=== PATIENT | male | born 1995 | race American Indian/Alaskan Native ===

== ENCOUNTER 2021-12-25 09:13 | Inpatient (IN) | payer OTHER ==
--- NOTE | 2021-12-25 10:14 | XRay Report ---
CHEST 2 VIEWS INDICATION / CLINICAL INFORMATION: SOB. COMPARISON: None available. FINDINGS: SUPPORT DEVICES: None. HEART / MEDIASTINUM: No significant abnormality. LUNGS / PLEURA: No significant pulmonary or pleural abnormality. No pneumothorax. ADDITIONAL FINDINGS: No significant additional findings. IMPRESSION: 1. No acute findings. Signer Name: Brandyn Sheets Jr, MD Signed: 12/25/2021 10:09 AM Workstation Name: [id number]
[2021-12-25 10:20] LABS: Mean Corpuscular HGB Conc 31 % (32-34); Mean Corpuscular Volume 95 fl (84-94); Platelet Count 318 K/mm3 (140-440); Red Blood Count 4.72 M/mm3 (3.65-5.03); Red Cell Distribution Width 14.1 % (13.2-15.2)
[2021-12-25 10:21] LABS: Hematocrit 44.6 % (35.5-45.6); Hemoglobin 13.7 gm/dl (11.8-15.2)
[2021-12-25 10:38] LABS: Alanine Aminotransferase 22 units/L (7-56); BUN/Creatinine Ratio 12; Blood Urea Nitrogen 14 mg/dL (9-20); Calcium 8.7 mg/dL (8.4-10.2); Hemolysis Index 5
[2021-12-25] MEDS ORDERED: SODIUM CHLORIDE 0.9% 1000 ML 1,000 ML IV ONE ×3 (10:39→11:10)
[2021-12-25] MEDS ORDERED: MORPHINE 4 MG/1 ML INJ IV ONE (10:39)
[2021-12-25] MEDS ORDERED: ONDANSETRON 4 MG/2 ML INJ IV ONE (10:39)
[2021-12-25] MEDS ORDERED: DEXTROSE 50% IN WATER (25GM) 50 ML SYRINGE IV PRN (11:10)
[2021-12-25 11:17] LABS: Mucus,Urine FEW /HPF
[2021-12-25 11:22] LABS: Color,Urine Straw (Yellow)
[2021-12-25 11:23] LABS: Bilirubin,Urine Negative (Negative); Blood,Urine Trace (Negative); Urobilinogen,Urine < 2.0 mg/dL (<2.0)
[2021-12-25 11:29] LABS: Band Neutrophils # (Manual) 1.1 K/mm3; Basophils % (Manual) 0 % (0.0-1.8); Eosinophils % (Manual) 0 % (0.0-4.3); Total Cells Counted 100
[2021-12-25 11:30] LABS: Platelet Estimate Consistent w Auto; RBC Morphology Normal
[2021-12-25] MEDS ORDERED: SODIUM CHLORIDE 0.9% 1000 ML IV SOLN IV ONE (12:04)
[2021-12-25] MEDS ORDERED: AZITHROMYCIN/NS 500 MG/250 ML 500 MG/250 ML BAG IV ONE (12:04)
[2021-12-25] MEDS ORDERED: cefTRIAXone/NS 2 GM/100 ML 2 GM/100 ML BAG IV ONE (12:04)
--- NOTE | 2021-12-25 12:18 | Cat Scan Report ---
CTA CHEST WITH CONTRAST INDICATION / CLINICAL INFORMATION: sob, cp, tachycardia, elevated d dimer, r/o PE. TECHNIQUE: Axial CT images were obtained through the chest after injection of 80 cc Omnipaque 350 IV contrast. 3 plane MIP and/or 3D reconstructions were produced. All CT scans at this location are perf ormed using CT dose reduction for ALARA by means of automated exposure control. There is mild image d egradation secondary to motion artifact. COMPARISON: None available. FINDINGS: PULMONARY ARTERIES: No pulmonary emboli. THORACIC AORTA: No significant abnormality. HEART: No significant abnormality. CORONARY ARTERY CALCIFICATION: None. MEDIASTINUM / DIANA: No significant abnormality. PLEURA: No pleural effusion. No pneumothorax. LUNGS: No acute air space or interstitial disease. ADDITIONAL FINDINGS: None. UPPER ABDOMEN: No acute findings. SKELETAL STRUCTURES: No significant osseous abnormality. IMPRESSION: 1. No CT evidence for pulmonary embolism. 2. No acute findings. Signer Name: Gustavo Liu DO Signed: 12/25/2021 12:13 PM Workstation Name: [id number]
--- NOTE | 2021-12-25 12:29 | History and Physical Report ---
History of Present Illness Chief complaint: I feel sick History of present illness: 26 YO Male with DM presents to ED for evaluation. Patient reports "I feel sick". Patient is lethargic with diminished cognition at time of my evaluation and provides minimal history. Patient reports feeling sick over the past few da ys. Patient transported to [facility] via private vehicle for further care and evaluation of the aforementioned symptoms. The patient was seen and evaluated in the emergency department. All lab and imaging studies reviewed. Patient found to have DKA, sepsis, hyponatremia, metabolic acidosis, toxic metabolic encephalopathy. Patient initiated on DKA protocol, sepsis protocol, as well as coronavirus protocol admitted to ICU. No reports of fever, chills, chest pain, palpitation, productive cough, skin rash, recent contact, known exposure to COVID-19. Prior admission on 05/30/2021 reviewed. No medication listed at time of admission for reconciliation. Patient has diminished cognition at the time my evaluation but has a positive gag reflex and is able to protect his airway without difficulty. Advanced care planning conducted in ED. Past History Past Medical History: diabetes Past Surgical History: No surgical history (Reviewed 6.), Other (Reviewed) Social history: single. denies: smoking, alcohol abuse, prescription drug abuse Family history: diabetes, hypertension Medications and Allergies Allergies Allergy/AdvReac Type Severity Reaction Status Date / Time levofloxacin [From Levaquin] Allergy Rash Verified 05/30/21 04:48 Home Medications Medication Instructions Recorded Confirmed Last Taken Type NovoLOG 100 UNITS/ML VIAL See Protocol SQ AC 05/31/21 05/31/21 1 Day Ago History ~05/30/21 Active Meds: Active Medications Dextrose (Dextrose 50% In Water (25gm) 50 Ml Syringe) 0 ml IV Q30MIN PRN; Protocol PRN Reason: Hypoglycemia Insulin Human Regular 100 (units/ Sodium Chloride) 100 mls @ 1 mls/hr IV TITR ANIA; Protocol Ceftriaxone Sodium (Rocephin/Ns 2 Gm/100 Ml) 2 gm in 100 mls @ 200 mls/hr IV ONCE ONE; Protocol Stop: 12/25/21 12:33 Azithromycin (Zithromax/Ns) 500 mg in 250 mls @ 250 mls/hr IV ONCE ONE; Protocol Stop: 12/25/21 13:03 Review of Systems ROS unobtainable: due to mental status Exam - Constitutional Vitals: Temp Pulse Resp BP Pulse Ox 98.7 F 126 H 29 H 128/62 100 12/25/21 09:16 12/25/21 11:21 12/25/21 11:21 12/25/21 09:16 12/25/21 11:21 General appearance: Present: mild distress - EENT Eyes: Present: PERRL ENT: hearing intact, clear oral mucosa - Neck Neck: Present: supple, normal ROM - Respiratory Respiratory effort: labored Respiratory: bilateral: CTA - Cardiovascular Heart Sounds: Present: S1 & S2. Absent: rub, click - Extremities Extremities: pulses symmetrical, No edema Peripheral Pulses: abnormal (Capillary refill greater than 3.5 seconds) - Abdominal General gastrointestinal: Present: soft, non-tender, non-distended, normal bowel sounds Male genitourinary: Present: normal - Integumentary Integumentary: Present: warm, dry, clammy, decreased turgor - Musculoskeletal Musculoskeletal: generalized weakness - Psychiatric Psychiatric: no appropriate mood/affect, no intact judgment & insight, no memory intact - Neurologic Neurologic: no CNII-XII intact, no focal deficits, moves all extremities, no gait normal HEART Score - HEART Score Troponin: Troponin T < 0.010 ng/mL (0.00-0.029) 12/25/21 09:52 Results - Labs CBC & Chem 7: 12/25/21 09:52 12/25/21 12:38 Labs: Abnormal lab results 12/25/21 12/25/21 12/25/21 Range/Units 09:52 09:52 09:52 WBC 36.9 H (4.5-11.0) K/mm3 MCV 95 H (84-94) fl MCHC 31 L (32-34) % Seg Neuts % (Manual) 87.0 H (40.0-70.0) % Lymphocytes % (Manual) 3.0 L (13.4-35.0) % Seg Neutrophils # Man 32.1 H (1.8-7.7) K/mm3 Lymphocytes # (Manual) 1.1 L (1.2-5.4) K/mm3 Monocytes # (Manual) 2.2 H (0.0-0.8) K/mm3 D-Dimer 397.42 H (0-234) ng/mlDDU Sodium 130 L (137-145) mmol/L Potassium 5.3 H (3.6-5.0) mmol/L Chloride 92.3 L (98-107) mmol/L Carbon Dioxide 4 L* (22-30) mmol/L Glucose 584 H* (75-100) mg/dL Assessment and Plan - Patient Problems (1) Sepsis Current Visit: Yes Status: Acute Plan to address problem: Sepsis protocol: CBC, CMP, chest x-ray, urinalysis, IV antibiotic therapy, IV fluid resuscitation therapy, serial lactic acid level, blood culture, maintain mean arterial pressure greater than or equal to 65, monitor fluid balance. The high probability of a clinically significant, sudden or life threatening deterioration of the [endocrine, pulmonary, renal, neuro] system(s) required my full and direct attention, intervention and personal management. The aggregate critical care time was [95] minutes. This time is in addition to time spent performing reported procedures but includes the following: [x] Data Review and interpretation [x] Patient assessment and monitoring of vital signs [x] Documentation [x] Medication orders and management (2) DKA (diabetic ketoacidosis) Current Visit: Yes Status: Acute Qualifiers: Diabetes mellitus type: type 1 Plan to address problem: DKA protocol: Insulin drip, IV fluid resuscitation therapy, serial BMP, monitor anion gap, IV bicarbonate therapy, potassium repletion as per protocol. (3) Metabolic acidosis Current Visit: Yes Status: Acute Plan to address problem: IV fluid resuscitation therapy, bicarbonate therapy, repeat BMP. (4) Toxic metabolic encephalopathy Current Visit: Yes Status: Acute Plan to address problem: Treat sepsis, IV fluid resuscitation therapy, supportive care. (5) Hyponatremia Current Visit: Yes Status: Acute Plan to address problem: BMP, IV fluid resuscitation therapy, monitor urine output every shift, monitor fluid Balance, repeat BMP in AM. (6) Suspected 2019 novel coronavirus infection Current Visit: Yes Status: Acute Plan to address problem: Coronavirus protocol, vitamin C therapy, vitamin D therapy, zinc therapy, IV antibiotic therapy, IV steroid therapy, supportive care. Supplemental oxygen, pulse oximetry. (7) DVT prophylaxis Current Visit: Yes Status: Acute Plan to address problem: SCD to bilateral lower extremities while in bed, continue prophylactic anticoagulation. (8) Advance care planning Current Visit: Yes Status: Acute Plan to address problem: Disease education done, care plan discussed, diagnosis discussed, prognosis discussed, patient is full code, +30 minutes. (9) Preventative health care Current Visit: Yes Status: Acute Plan to address problem: Patient counseled regarding compliance with consistent carbohydrate diet, insulin therapy. Patient counseled regarding safe driving. +30 minutes.
[2021-12-25] MEDS ORDERED: oxyCODONE /ACETAMINOPHEN 5-325MG TAB PO PRN (12:32)
[2021-12-25] MEDS ORDERED: MORPHINE 4 MG/1 ML INJ IV PRN (12:32)
[2021-12-25] MEDS ORDERED: HYDROmorphone 0.5 MG/0.5 ML INJ IV PRN (12:32)
[2021-12-25] MEDS ORDERED: ACETAMINOPHEN 325 MG TAB PO PRN ×2 (12:32)
[2021-12-25] MEDS ORDERED: ALBUTEROL 2.5 MG/3 ML NEBU IH PRN (12:32)
[2021-12-25] MEDS ORDERED: VANCOMYCIN 1,750 MG in SODIUM CHLORIDE 0.9% 500 ML 500 ML IV ONE (12:32)
[2021-12-25] MEDS ORDERED: INSULIN REGULAR, HUMAN 100 UNITS/1 ML IV ONE (12:35)
[2021-12-25] MEDS: INSULIN REGULAR, HUMAN 100 UNITS in SODIUM CHLORIDE 0.9% 99 ML IV SCH (12:42)
--- NOTE | 2021-12-25 12:51 | Emergency Department Report ---
ED General Adult HPI - General Chief complaint: Upper Respiratory Infection Stated complaint: GALEAS PAIN/NAUSEA Time Seen by Provider: 12/25/21 09:48 Source: patient Mode of arrival: Ambulatory Limitations: No Limitations - History of Present Illness Initial comments: Patient is a 26-year-old male with past medical history notable for type 1 diabetes who presents emergency department with complaint of 3 days of body aches, chills, shortness of breath. Patient states he has not had fevers. Patient reports that he is vaccinated against COVID-19. He denies any sick contacts. He reports that he has been taking his medication as prescribed but has had some significant nausea. Severity scale (0 -10): 10 - Related Data Home Medications Medication Instructions Recorded Confirmed Last Taken NovoLOG 100 UNITS/ML VIAL See Protocol SQ AC 05/31/21 05/31/21 1 Day Ago ~05/30/21 Allergies Allergy/AdvReac Type Severity Reaction Status Date / Time levofloxacin [From Levaquin] Allergy Rash Verified 05/30/21 04:48 ED Review of Systems ROS: Stated complaint: GALEAS PAIN/NAUSEA Other details as noted in HPI Constitutional: chills. denies: fever Eyes: denies: eye pain, eye discharge, vision change ENT: denies: ear pain, throat pain Respiratory: cough, shortness of breath. denies: wheezing Cardiovascular: denies: chest pain, palpitations Endocrine: no symptoms reported Gastrointestinal: nausea. denies: abdominal pain, diarrhea Genitourinary: denies: urgency, dysuria Musculoskeletal: denies: back pain, joint swelling, arthralgia Skin: denies: rash, lesions Neurological: denies: headache, weakness, paresthesias Psychiatric: denies: anxiety, depression Hematological/Lymphatic: denies: easy bleeding, easy bruising ED Past Medical Hx - Past Medical History Hx Diabetes: Yes (Type1, DKA (multiple admissions)) Additional medical history: Celiac disease - Surgical History Past Surgical History?: No - Social History Smoking Status: Current Every Day Smoker - Medications Home Medications: Home Medications Medication Instructions Recorded Confirmed Last Taken Type NovoLOG 100 UNITS/ML VIAL See Protocol SQ AC 05/31/21 05/31/21 1 Day Ago History ~05/30/21 ED Physical Exam - General Limitations: No Limitations General appearance: alert, in distress - Head Head exam: Present: atraumatic, normocephalic - Eye Eye exam: Present: normal appearance - ENT ENT exam: Present: mucous membranes dry - Neck Neck exam: Present: other (There is a lesion to the right aspect of the neck. It is nontender) - Respiratory Respiratory exam: Present: normal lung sounds bilaterally, other (Patient is markedly tachypneic) - Cardiovascular Cardiovascular Exam: Present: tachycardia. Absent: systolic murmur, diastolic murmur, rubs, gallop - GI/Abdominal GI/Abdominal exam: Present: soft. Absent: distended, tenderness - Rectal Rectal exam: Present: deferred - Extremities Exam Extremities exam: Present: normal inspection - Back Exam Back exam: Present: normal inspection - Neurological Exam Neurological exam: Present: alert, oriented X3 - Psychiatric Psychiatric exam: Present: normal affect, normal mood - Skin Skin exam: Present: warm, dry, intact, normal color. Absent: rash ED Course Vital Signs 12/25/21 12/25/21 12/25/21 09:16 10:11 11:21 Temperature 98.7 F Pulse Rate 117 H 126 H Respiratory 24 20 29 H Rate Blood Pressure 128/62 Blood Pressure [Right] O2 Sat by Pulse 100 100 100 Oximetry 12/25/21 12:50 Temperature 97.2 F L Pulse Rate 119 H Respiratory 34 H Rate Blood Pressure Blood Pressure 128/90 [Right] O2 Sat by Pulse 100 Oximetry - Reevaluation(s) Reevaluation #1: 12/25/21 12:56 Patient still tachypneic. Patient's insulin drip and IV bolus of insulin has been ordered. Given that he is hyperkalemic I have not ordered any additional potassium like fluids. - Consultations Consultation #1: 12/25/21 12:54 I have spoken to the door to door selling distributor, Dr. Lobato. She will be consulting on the patient and patient is to be admitted to the hospitalist to the critical care unit. ED Medical Decision Making - Lab Data Result diagrams: 12/25/21 09:52 12/25/21 09:52 - Radiology Data Radiology results: report reviewed, image reviewed - Medical Decision Making This is a 26-year-old male here with complaints of chills, nausea, upper respiratory symptoms. Differential includes pulmonary embolism, pneumonia, viral infection, covid 19, patient also is a diabetic so the differential includes DKA, HHS, Hyperglycemia. Labs in triage notable for white count of 36, CO2 of 4, elevated blood sugar above 500. Given this I do think patient is in DKA and he has been ordered fluids, insulin bolus and insulin drip. Plan for admission to the hospitalist with consultation with ICU. Broad-spectrum antibiotics have also been ordered. Critical Care Time: Yes Critical care time in (mins) excluding proc time.: 42 Critical care attestation.: If time is entered above; I have spent that time in minutes in the direct care of this critically ill patient, excluding procedure time. ED Disposition Clinical Impression: DKA (diabetic ketoacidosis) Disposition: ADMITTED INPATIENT Is pt being admited?: Yes Does the pt Need Aspirin: No Condition: Critical Instructions: Diabetic Ketoacidosis (ED) Referrals: PRIMARY CARE, [Primary Care Provider] - 3-5 Days
[2021-12-25] MEDS ORDERED: VANCOMYCIN PHARMACY TO DOSE IV SCH (13:00)
[2021-12-25 13:23] LABS: BUN/Creatinine Ratio 13; Blood Urea Nitrogen 14 mg/dL (9-20); Calcium 8.9 mg/dL (8.4-10.2); Hemolysis Index 11
[2021-12-25] MEDS ORDERED: SODIUM BICARB 8.4% 50 MEQ/50 ML SYRINGE IV SCH ×2 (14:30)
[2021-12-25 14:44] LABS: C-Reactive Protein 0.4 mg/dL (0.00-1.30)
[2021-12-25] MEDS ORDERED: INSULIN REGULAR, HUMAN 100 UNITS in SODIUM CHLORIDE 0.9% 99 ML IV SCH (15:00)
--- NOTE | 2021-12-25 15:56 | Consultation ---
History of Present Illness Consult date: 12/25/21 Medications and Allergies Allergies Allergy/AdvReac Type Severity Reaction Status Date / Time levofloxacin [From Levaquin] Allergy Rash Verified 05/30/21 04:48 Home Medications Medication Instructions Recorded Confirmed Last Taken Type NovoLOG 100 UNITS/ML VIAL See Protocol SQ AC 05/31/21 05/31/21 1 Day Ago History ~05/30/21 Active Meds: Active Medications Acetaminophen (Acetaminophen 325 Mg Tab) 650 mg PO Q6H PRN PRN Reason: Pain MILD(1-3)/Fever >100.5/BARRETT Albuterol (Albuterol 2.5 Mg/3 Ml Nebu) 2.5 mg IH Q3HRT PRN PRN Reason: Shortness Of Breath Dextrose (Dextrose 50% In Water (25gm) 50 Ml Syringe) 0 ml IV Q30MIN PRN; Protocol PRN Reason: Hypoglycemia Hydromorphone HCl (Hydromorphone 0.5 Mg/0.5 Ml Inj) 0.25 mg IV Q4H PRN PRN Reason: Pain, Moderate (4-6) Insulin Human Regular 100 (units/ Sodium Chloride) 100 mls @ 1 mls/hr IV TITR ANIA; Protocol Last Admin: 12/25/21 12:42 Dose: 8 units/hr, 8 mls/hr Azithromycin (Zithromax/Ns) 500 mg in 250 mls @ 250 mls/hr IV Q24H ANIA; Protocol Ceftriaxone Sodium (Rocephin/Ns 2 Gm/100 Ml) 2 gm in 100 mls @ 200 mls/hr IV Q24H ANIA; Protocol Morphine Sulfate (Morphine 4 Mg/1 Ml Inj) 2 mg IV Q14H PRN PRN Reason: Pain , Severe (7-10) Oxycodone/Acetaminophen (Oxycodone /Acetaminophen 5-325mg Tab) 1 tab PO Q6H PRN PRN Reason: Pain, Moderate (4-6) Sodium Bicarbonate (Sodium Bicarb 8.4% 50 Meq/50 Ml Syringe) 50 meq IV ONCE@1430 ANIA Stop: 12/25/21 18:30 Sodium Bicarbonate (Sodium Bicarb 8.4% 50 Meq/50 Ml Syringe) 50 meq IV ONCE@1430 ANIA Stop: 12/25/21 18:30 Sodium Chloride (Sodium Chloride 0.9% 10 Ml Flush Syringe) 10 ml IV BID ANIA Sodium Chloride (Sodium Chloride 0.9% 10 Ml Flush Syringe) 10 ml IV PRN PRN PRN Reason: LINE FLUSH Physical Examination Vital signs: Vital Signs Temp Pulse Resp BP Pulse Ox 98.7 F 117 H 24 128/62 100 12/25/21 09:16 12/25/21 09:16 12/25/21 09:16 12/25/21 09:16 12/25/21 09:16 Results - Laboratory Findings CBC and BMP: 12/25/21 09:52 12/25/21 12:38 PT/INR, D-dimer D-Dimer 397.42 ng/mlDDU (0-234) H 12/25/21 09:52 Abnormal lab findings: Abnormal Labs 12/25/21 12/25/21 12/25/21 09:52 09:52 09:52 WBC 36.9 H MCV 95 H MCHC 31 L Seg Neuts % (Manual) 87.0 H Lymphocytes % (Manual) 3.0 L Seg Neutrophils # Man 32.1 H Lymphocytes # (Manual) 1.1 L Monocytes # (Manual) 2.2 H D-Dimer 397.42 H VBG pH Sodium 130 L Potassium 5.3 H Chloride 92.3 L Carbon Dioxide 4 L* Glucose 584 H* POC Glucose Phosphorus Lactate Dehydrogenase 12/25/21 12/25/21 12/25/21 12:27 12:38 12:38 WBC MCV MCHC Seg Neuts % (Manual) Lymphocytes % (Manual) Seg Neutrophils # Man Lymphocytes # (Manual) Monocytes # (Manual) D-Dimer VBG pH 7.040 L* Sodium 130 L Potassium 5.4 H Chloride 92.6 L Carbon Dioxide 3 L* Glucose 581 H* POC Glucose 586 H Phosphorus 5.80 H Lactate Dehydrogenase 12/25/21 12:40 WBC MCV MCHC Seg Neuts % (Manual) Lymphocytes % (Manual) Seg Neutrophils # Man Lymphocytes # (Manual) Monocytes # (Manual) D-Dimer VBG pH Sodium Potassium Chloride Carbon Dioxide Glucose POC Glucose Phosphorus Lactate Dehydrogenase 224 H
--- NOTE | 2021-12-25 17:28 | Procedure Note ---
Date of procedure: 12/25/21 Pre-op diagnosis: DKA Post-op diagnosis: same Procedure: Right femoral vein triple-lumen catheter placed under ultrasound guidance The patient was prepped and draped in the usual sterile fashion. A timeout was taken with the patient's nurse at bedside to verify the correct patient, the correct procedure, and the correct operative site. Local anesthesia obtained with 1% lidocaine. The Seldinger technique was utilized under ultrasound to localize the right femoral vein without difficulty. A seeker needle was utilized to access the right femoral vein under ultrasound guidance. A guidewire was advanced via the seeker needle into the right femoral vein and the seeker needle removed over the guidewire. A scalpel was used to incise the skin. A dilator was then passed over the guidewire into the right femoral vein and subsequently removed. A preflush triple-lumen catheter was then advanced to the right femoral vein and the guidewire removed. A Biopatch was placed at the insertion site. 3-0 silk suture was utilized to suture the triple-lumen catheter in place. All 3 ports flush and drawl with ease. Estimated blood loss minimal. Complications none. Specimens none. Anesthesia: local Surgeon: NEVAEH NIELSEN Estimated blood loss: minimal Pathology: none Condition: critical Disposition: ICU
[2021-12-25] MEDS ORDERED: SODIUM CHLORIDE 0.9% 1000 ML 2,000 ML IV ONE (18:27)
[2021-12-25] MEDS: D5W/0.45% NACL 1,000 ML IV SCH (18:59)
[2021-12-25 23:40] LABS: BUN/Creatinine Ratio 11; Blood Urea Nitrogen 11 mg/dL (9-20); Calcium 7.9 mg/dL (8.4-10.2); Hemolysis Index 5
[2021-12-26] MEDS: INSULIN REGULAR, HUMAN 100 UNITS in SODIUM CHLORIDE 0.9% 99 ML IV SCH (01:03)
[2021-12-26] MEDS: D5W/0.45% NACL 1,000 ML IV SCH (01:05)
[2021-12-26 04:45] LABS: Hematocrit 36.3 % (35.5-45.6); Hemoglobin 11.9 gm/dl (11.8-15.2); Mean Corpuscular HGB Conc 33 % (32-34); Mean Corpuscular Volume 90 fl (84-94); Platelet Count 270 K/mm3 (140-440); Red Blood Count 4.04 M/mm3 (3.65-5.03); Red Cell Distribution Width 13.4 % (13.2-15.2)
[2021-12-26 05:14] LABS: BUN/Creatinine Ratio 11; Blood Urea Nitrogen 9 mg/dL (9-20); Calcium 7.9 mg/dL (8.4-10.2); Hemolysis Index 3
[2021-12-26 06:53] LABS: Band Neutrophils # (Manual) 1.3 K/mm3; Basophils % (Manual) 0 % (0.0-1.8); Eosinophils % (Manual) 0 % (0.0-4.3); Platelet Estimate Consistent w Auto; RBC Morphology Normal; Total Cells Counted 100
[2021-12-26] MEDS ORDERED: POTASSIUM PHOSPHATE 30 MMOL in SODIUM CHLORIDE 0.9% 500 ML 500 ML IV SCH (08:15)
[2021-12-26] MEDS: PANTOPRAZOLE 40 MG TAB PO SCH (09:04)
[2021-12-26] MEDS ORDERED: FAMOTIDINE 20 MG TAB PO SCH (10:00)
[2021-12-26] MEDS ORDERED: DEXTROSE 50% IN WATER (25GM) 50 ML SYRINGE IV PRN (12:32)
--- NOTE | 2021-12-26 12:43 | Progress Note ---
<TERESA JACOBS - Last Filed: 12/26/21 18:00> Assessment and Plan Assessment and plan: This is a 26-year-old male with past medical history of uncontrolled type 1 diabetes admitted for DKA Hospital Course to Date: 12/26: Patient remains on DKA protocol. BG and anion gap closed this am. Will schaffer sition patient to subQ insulin. Patient remains afebrile, VSS. COVID PCR came back negative, procal wnr. Patient remains stable on RA. Will hold IV abx for now, continue to trend CBC. Monitor and replete electrolytes as needed. Thorough discussion with patient in regards to diagnosis and plan of care at the bedside. Patient voiced that he ran out of supply for his insulin over the weekend and he is not able to afford them at this time. Per patient he has been complaint with his insulin regimen. Case management consulted for alternative resources for insulin and supply. Assessment and Plan #Diabetic ketoacidosis #Anion gap metabolic acidosis #History of type 1 diabetes -A1c 12.5% -Presented with anion gap 40, glucose in the 500s -Per patient he ran out of supply for his insulin over the weekend and he is not able to afford them at this time -DKA protocol initiated -Transition to subQ insulin, SSI ACHS and Lantus Qhs -Critical care consulted, assistance appreciated -Serial BMP,mg, and phosp ordered #Leukocytosis #Possible Sepsis -Elevated WBC count and heart rate -Likely secondary to above -CXR is unremakable, COVID PCR negative -Blood cultures with no growth to date -UA positive for ketones, otherwise negative -Patient remains afebrile and VSS -Procal wnr -Will hold IV Abx for now -Continue to F/U on B.cult -Daily CBC monitor #Toxic Metabolic Encephalopathy -Most likely secondary to DKA -DKA protocol initiated -Patient is awake and alert this am, totally appropriate -Avoid benzodiazepine at this time -Maintenance of sleep-wake cycle, avoid delirium #Hypophosphetemia #Hypokalemia -Likely secondary to above and gtt -K and mg repleted -Serial BMP ordered -will continue to monitor electrolytes and replete as needed #Hyponatremia-resolved #Volume Depletion -Likely secondary to hyperglycemia -High specific gravity, hemoconcentration on CBC -s/p IV fluids with DKA protocol -Strict intake and output -Monitor and replace electrolytes as needed #GI/DVT Prophylaxis -PPI- Protonix -SCDs to bilateral lower extremities while in bed #Advance Care Planning - Disease education data, care plan, diagnoses, and prognosis were discussed with patient at the bedside. Patient is a full code. Patient acknowledged understanding and agreement with current care plan. The high probability of a clinically significant, sudden or life threatening deterioration of the [endocrine, pulmonary, renal, neuro] system(s) required my full and direct attention, intervention and personal management. The aggregate critical care time was [40] minutes. This time is in addition to time spent performing reported procedures but includes the following: [x] Data Review and interpretation [x] Patient assessment and monitoring of vital signs [x] Documentation [x] Medication orders and management Disposition Plan: ICU Total Time Spent with Patient (Minutes): 60 History Interval history: Patient seen and examined at the bedside. Fully AAO, on RA, denied any pain nor any discomfort at this time. Remains on DKA protocol. CLAUDIA overnight Hospitalist Physical - Constitutional Vitals: Temp Pulse Resp BP Pulse Ox 97.7 F 71 15 105/60 98 12/26/21 12:00 12/26/21 12:01 12/26/21 12:01 12/26/21 12:01 12/26/21 12:01 General appearance: Present: no acute distress - EENT Eyes: Present: PERRL, EOM intact ENT: hearing intact - Neck Neck: Present: normal ROM - Respiratory Respiratory effort: normal Respiratory: bilateral: CTA - Cardiovascular Rhythm: regular Heart Sounds: Present: S1 & S2 - Extremities Extremities: no ischemia, pulses intact, pulses symmetrical Peripheral Pulses: within normal limits - Abdominal General gastrointestinal: soft, non-distended, normal bowel sounds - Integumentary Integumentary: Present: warm, dry - Psychiatric Psychiatric: appropriate mood/affect, depressed - Neurologic Neurologic: CNII-XII intact, moves all extremities - Allied Health Allied health notes reviewed: nursing, case management HEART Score - HEART Score Troponin: Troponin T < 0.010 ng/mL (0.00-0.029) 12/25/21 09:52 Results - Labs CBC & Chem 7: 12/26/21 04:05 12/26/21 15:24 Labs: Laboratory Last Values WBC 31.4 K/mm3 (4.5-11.0) H 12/26/21 04:05 RBC 4.04 M/mm3 (3.65-5.03) 12/26/21 04:05 Hgb 11.9 gm/dl (11.8-15.2) 12/26/21 04:05 Hct 36.3 % (35.5-45.6) D 12/26/21 04:05 MCV 90 fl (84-94) 12/26/21 04:05 MCH 30 pg (28-32) 12/26/21 04:05 MCHC 33 % (32-34) 12/26/21 04:05 RDW 13.4 % (13.2-15.2) 12/26/21 04:05 Plt Count 270 K/mm3 (140-440) 12/26/21 04:05 Add Manual Diff Complete 12/26/21 04:05 Total Counted 100 12/26/21 04:05 Seg Neuts % (Manual) 83.0 % (40.0-70.0) H 12/26/21 04:05 Band Neutrophils % 4.0 % 12/26/21 04:05 Lymphocytes % (Manual) 9.0 % (13.4-35.0) L 12/26/21 04:05 Reactive Lymphs % (Man) 0 % 12/26/21 04:05 Monocytes % (Manual) 3.0 % (0.0-7.3) 12/26/21 04:05 Eosinophils % (Manual) 0 % (0.0-4.3) 12/26/21 04:05 Basophils % (Manual) 0 % (0.0-1.8) 12/26/21 04:05 Metamyelocytes % 1.0 % 12/26/21 04:05 Myelocytes % 0 % 12/26/21 04:05 Promyelocytes % 0 % 12/26/21 04:05 Blast Cells % 0 % 12/26/21 04:05 Nucleated RBC % Not Reportable 12/26/21 04:05 Seg Neutrophils # Man 26.1 K/mm3 (1.8-7.7) H 12/26/21 04:05 Band Neutrophils # 1.3 K/mm3 12/26/21 04:05 Lymphocytes # (Manual) 2.8 K/mm3 (1.2-5.4) 12/26/21 04:05 Abs React Lymphs (Man) 0.0 K/mm3 12/26/21 04:05 Monocytes # (Manual) 0.9 K/mm3 (0.0-0.8) H 12/26/21 04:05 Eosinophils # (Manual) 0.0 K/mm3 (0.0-0.4) 12/26/21 04:05 Basophils # (Manual) 0.0 K/mm3 (0.0-0.1) 12/26/21 04:05 Metamyelocytes # 0.3 K/mm3 12/26/21 04:05 Myelocytes # 0.0 K/mm3 12/26/21 04:05 Promyelocytes # 0.0 K/mm3 12/26/21 04:05 Blast Cells # 0.0 K/mm3 12/26/21 04:05 WBC Morphology Not Reportable 12/26/21 04:05 Hypersegmented Neuts Not Reportable 12/26/21 04:05 Hyposegmented Neuts Not Reportable 12/26/21 04:05 Hypogranular Neuts Not Reportable 12/26/21 04:05 Smudge Cells Not Reportable 12/26/21 04:05 Toxic Granulation Not Reportable 12/26/21 04:05 Toxic Vacuolation Not Reportable 12/26/21 04:05 Dohle Bodies Not Reportable 12/26/21 04:05 Pelger-Huet Anomaly Not Reportable 12/26/21 04:05 Raghav Rods Not Reportable 12/26/21 04:05 Platelet Estimate Consistent w auto 12/26/21 04:05 Clumped Platelets Not Reportable 12/26/21 04:05 Plt Clumps, EDTA Not Reportable 12/26/21 04:05 Large Platelets Not Reportable 12/26/21 04:05 Giant Platelets Not Reportable 12/26/21 04:05 Platelet Satelliting Not Reportable 12/26/21 04:05 Plt Morphology Comment Not Reportable 12/26/21 04:05 RBC Morphology Normal 12/26/21 04:05 Dimorphic RBCs Not Reportable 12/26/21 04:05 Polychromasia Not Reportable 12/26/21 04:05 Hypochromasia Not Reportable 12/26/21 04:05 Poikilocytosis Not Reportable 12/26/21 04:05 Anisocytosis Not Reportable 12/26/21 04:05 Microcytosis Not Reportable 12/26/21 04:05 Macrocytosis Not Reportable 12/26/21 04:05 Spherocytes Not Reportable 12/26/21 04:05 Pappenheimer Bodies Not Reportable 12/26/21 04:05 Sickle Cells Not Reportable 12/26/21 04:05 Target Cells Not Reportable 12/26/21 04:05 Tear Drop Cells Not Reportable 12/26/21 04:05 Ovalocytes Not Reportable 12/26/21 04:05 Helmet Cells Not Reportable 12/26/21 04:05 Navarro-[place] Bodies Not Reportable 12/26/21 04:05 [place] Rings Not Reportable 12/26/21 04:05 [place] Cells Not Reportable 12/26/21 04:05 Bite Cells Not Reportable 12/26/21 04:05 Crenated Cell Not Reportable 12/26/21 04:05 Elliptocytes Not Reportable 12/26/21 04:05 Acanthocytes (Spur) Not Reportable 12/26/21 04:05 Rouleaux Not Reportable 12/26/21 04:05 Hemoglobin C Crystals Not Reportable 12/26/21 04:05 Schistocytes Not Reportable 12/26/21 04:05 Malaria parasites Not Reportable 12/26/21 04:05 Chaim Bodies Not Reportable 12/26/21 04:05 Hem Pathologist Commnt No 12/26/21 04:05 D-Dimer 566.48 ng/mlDDU (0-234) H 12/25/21 22:58 VBG pH 7.040 (7.320-7.420) L* 12/25/21 12:38 Sodium 140 mmol/L (137-145) 12/26/21 04:00 Potassium 3.6 mmol/L (3.6-5.0) 12/26/21 04:00 Chloride 110.7 mmol/L (98-107) H 12/26/21 04:00 Carbon Dioxide 15 mmol/L (22-30) L 12/26/21 04:00 Anion Gap 18 mmol/L 12/26/21 04:00 BUN 9 mg/dL (9-20) 12/26/21 04:00 Creatinine 0.8 mg/dL (0.8-1.3) 12/26/21 04:00 Estimated GFR > 60 ml/min 12/26/21 04:00 BUN/Creatinine Ratio 11 % 12/26/21 04:00 Glucose 139 mg/dL (75-100) H 12/26/21 04:00 POC Glucose 134 mg/dL (70-105) H 12/26/21 11:34 Ketones Quantitative Moderate (Negative) 12/25/21 12:38 Lactic Acid 1.10 mmol/L (0.7-2.0) 12/26/21 04:26 Calcium 7.9 mg/dL (8.4-10.2) L 12/26/21 04:00 Phosphorus 1.70 mg/dL (2.5-4.5) L 12/26/21 04:00 Magnesium 1.90 mg/dL (1.7-2.3) 12/26/21 04:00 Total Bilirubin 0.20 mg/dL (0.1-1.2) 12/25/21 09:52 AST 19 units/L (5-40) 12/25/21 09:52 ALT 22 units/L (7-56) 12/25/21 09:52 Alkaline Phosphatase 111 units/L (35-129) 12/25/21 09:52 Lactate Dehydrogenase 224 units/L (91-180) H 12/25/21 12:40 Troponin T < 0.010 ng/mL (0.00-0.029) 12/25/21 09:52 C-Reactive Protein 0.40 mg/dL (0.00-1.30) 12/25/21 12:40 Total Protein 6.6 g/dL (6.3-8.2) 12/25/21 09:52 Albumin 4.0 g/dL (3.9-5) 12/25/21 09:52 Albumin/Globulin Ratio 1.5 % 12/25/21 09:52 Procalcitonin 0.32 ng/mL (<0.15) 12/25/21 22:58 Urine Color Straw (Yellow) 12/25/21 10:59 Urine Turbidity Clear (Clear) 12/25/21 10:59 Urine pH 5.0 (5.0-7.0) 12/25/21 10:59 Ur Specific [place] 1.020 (1.003-1.030) 12/25/21 10:59 Urine Protein 100 mg/dl mg/dL (Negative) 12/25/21 10:59 Urine Glucose (UA) 2000 mg/dL (Negative) 12/25/21 10:59 Urine Ketones 160 mg/dL (Negative) 12/25/21 10:59 Urine Blood Trace (Negative) 12/25/21 10:59 Urine Nitrite Negative (Negative) 12/25/21 10:59 Ur Reducing Substances Not Reportable 12/25/21 10:59 Urine Bilirubin Negative (Negative) 12/25/21 10:59 Urine Ictotest Not Reportable 12/25/21 10:59 Urine Urobilinogen < 2.0 mg/dL (<2.0) 12/25/21 10:59 Ur Leukocyte Esterase Negative (Negative) 12/25/21 10:59 Urine WBC (Auto) 3.0 /HPF (0.0-6.0) 12/25/21 10:59 Urine RBC (Auto) 1.0 /HPF (0.0-6.0) 12/25/21 10:59 U Epithel Cells (Auto) < 1.0 /HPF (0-13.0) 12/25/21 10:59 Urine Mucus Few /HPF 12/25/21 10:59 Blood Type O NEGATIVE 12/25/21 22:58 Antibody Screen Negative 12/25/21 22:58 Microbiology: Microbiology 12/25/21 12:38 Peripheral/Venous Blood Culture - Preliminary Culture in Progress 12/25/21 12:38 Peripheral/Venous Blood Culture - Preliminary Culture in Progress Mitchell/IV: Voiding Method Urinal Active Medications - Current Medications Current Medications: Generic Name Dose Route Start Last Admin Trade Name Freq PRN Reason Stop Dose Admin Acetaminophen 650 mg 12/25/21 12:32 Acetaminophen 325 Mg Tab PO Q6H PRN Pain MILD(1-3)/Fever >100.5/BARRETT Albuterol 2.5 mg 12/25/21 12:32 Albuterol 2.5 Mg/3 Ml Nebu IH Q3HRT PRN Shortness Of Breath Dextrose 0 ml 12/25/21 11:10 Dextrose 50% In Water (25gm) 50 Ml Syringe IV Q30MIN PRN Hypoglycemia Protocol Hydromorphone HCl 0.25 mg 12/25/21 12:32 Hydromorphone 0.5 Mg/0.5 Ml Inj IV Q4H PRN Pain, Moderate (4-6) Insulin Human Regular 100 100 mls @ 1 mls/hr 12/25/21 12:00 12/26/21 11:35 units/ Sodium Chloride IV 3 units/hr TITR ANIA 3 mls/hr Titration Protocol 1 UNITS/HR Azithromycin 500 mg in 250 mls @ 250 mls/hr 12/26/21 13:00 Zithromax/Ns IV Q24H ANIA Protocol Ceftriaxone Sodium 2 gm in 100 mls @ 200 mls/hr 12/26/21 15:00 Rocephin/Ns 2 Gm/100 Ml IV Q24H ANIA Protocol Dextrose/Sodium Chloride 1,000 mls @ 125 mls/hr 12/25/21 19:00 12/26/21 01:05 D5/0.45ns IV 125 mls/hr DIRECT ANIA Administration Potassium Phosphate 30 mmol/ 510 mls @ 85 mls/hr 12/26/21 08:15 12/26/21 09:03 Sodium Chloride IV 12/26/21 14:15 85 mls/hr ONCE@0815 ANIA Administration Morphine Sulfate 2 mg 12/25/21 12:32 Morphine 4 Mg/1 Ml Inj IV Q14H PRN Pain , Severe (7-10) Oxycodone/Acetaminophen 1 tab 12/25/21 12:32 Oxycodone /Acetaminophen 5-325mg Tab PO Q6H PRN Pain, Moderate (4-6) Pantoprazole Sodium 40 mg 12/26/21 08:00 12/26/21 09:04 Pantoprazole 40 Mg Tab PO 40 mg QDAC ANIA Administration Sodium Chloride 10 ml 12/25/21 22:00 12/26/21 09:04 Sodium Chloride 0.9% 10 Ml Flush Syringe IV 10 ml BID ANIA Administration Sodium Chloride 10 ml 12/25/21 12:32 Sodium Chloride 0.9% 10 Ml Flush Syringe IV PRN PRN LINE FLUSH Nutrition/Malnutrition Assess - Dietary Evaluation Nutrition/Malnutrition Findings: Nutrition Notes Start: 12/25/21 13:59 Freq: Status: Active Protocol: Document 12/25/21 13:59 NORBERTO (Rec: 12/25/21 14:06 NORBERTO [id number]) Nutrition Notes Need for Assessment generated from: MD Order,Education Initial or Follow up Brief Note Current Diagnosis Diabetes Other Pertinent Diagnosis DKA, N/V/Malaise. Current Diet NPO 9since 12/25 12:33). Height 5 ft 10 in Weight 81.647 kg [place] Body Weight (kg) 75.45 BMI 25.8 Weight change and time frame None provided at admission. Weight Status Overweight Subjective/Other Information RD consult for nutrition education assessment. Pt currently on NPO. Pt is on Room Air, O2 saturation @ 100%, according to Vital Signs notes. Pt still in critical condition , not a candidate for Nutrition Education at the time, will assess feasibility on F/U. Percent of energy/protein needs met: Pt currently on NPO. Nutrition Intervention Follow-Up By: 12/27/21 Additional Comments Nutrition education will be provided at F/U, if feasible. Continue monitoring food tolerance, %PO intake of meals , and BM. <MARCOS OLVERA E - Last Filed: 12/27/21 07:20> Assessment and Plan Assessment and plan: I saw and evaluated the patient. I agree with the findings and the plan of care as documented in the Nurse Practitioner's~note, with the following corrections and additions. Hospitalist Physical - Constitutional Vitals: Temp Pulse Resp BP Pulse Ox 99.0 F 51 L 16 124/72 99 12/27/21 05:31 12/27/21 05:31 12/27/21 05:31 12/27/21 05:31 12/27/21 05:31 HEART Score - HEART Score Troponin: Troponin T < 0.010 ng/mL (0.00-0.029) 12/25/21 09:52 Results - Labs CBC & Chem 7: 12/27/21 04:46 12/27/21 04:46 Labs: Laboratory Last Values WBC 16.3 K/mm3 (4.5-11.0) H 12/27/21 04:46 RBC 3.93 M/mm3 (3.65-5.03) 12/27/21 04:46 Hgb 11.7 gm/dl (11.8-15.2) L 12/27/21 04:46 Hct 35.1 % (35.5-45.6) L 12/27/21 04:46 MCV 89 fl (84-94) 12/27/21 04:46 MCH 30 pg (28-32) 12/27/21 04:46 MCHC 33 % (32-34) 12/27/21 04:46 RDW 13.3 % (13.2-15.2) 12/27/21 04:46 Plt Count 202 K/mm3 (140-440) 12/27/21 04:46 Add Manual Diff Complete 12/26/21 04:05 Total Counted 100 12/26/21 04:05 Seg Neuts % (Manual) 83.0 % (40.0-70.0) H 12/26/21 04:05 Band Neutrophils % 4.0 % 12/26/21 04:05 Lymphocytes % (Manual) 9.0 % (13.4-35.0) L 12/26/21 04:05 Reactive Lymphs % (Man) 0 % 12/26/21 04:05 Monocytes % (Manual) 3.0 % (0.0-7.3) 12/26/21 04:05 Eosinophils % (Manual) 0 % (0.0-4.3) 12/26/21 04:05 Basophils % (Manual) 0 % (0.0-1.8) 12/26/21 04:05 Metamyelocytes % 1.0 % 12/26/21 04:05 Myelocytes % 0 % 12/26/21 04:05 Promyelocytes % 0 % 12/26/21 04:05 Blast Cells % 0 % 12/26/21 04:05 Nucleated RBC % Not Reportable 12/26/21 04:05 Seg Neutrophils # Man 26.1 K/mm3 (1.8-7.7) H 12/26/21 04:05 Band Neutrophils # 1.3 K/mm3 12/26/21 04:05 Lymphocytes # (Manual) 2.8 K/mm3 (1.2-5.4) 12/26/21 04:05 Abs React Lymphs (Man) 0.0 K/mm3 12/26/21 04:05 Monocytes # (Manual) 0.9 K/mm3 (0.0-0.8) H 12/26/21 04:05 Eosinophils # (Manual) 0.0 K/mm3 (0.0-0.4) 12/26/21 04:05 Basophils # (Manual) 0.0 K/mm3 (0.0-0.1) 12/26/21 04:05 Metamyelocytes # 0.3 K/mm3 12/26/21 04:05 Myelocytes # 0.0 K/mm3 12/26/21 04:05 Promyelocytes # 0.0 K/mm3 12/26/21 04:05 Blast Cells # 0.0 K/mm3 12/26/21 04:05 WBC Morphology Not Reportable 12/26/21 04:05 Hypersegmented Neuts Not Reportable 12/26/21 04:05 Hyposegmented Neuts Not Reportable 12/26/21 04:05 Hypogranular Neuts Not Reportable 12/26/21 04:05 Smudge Cells Not Reportable 12/26/21 04:05 Toxic Granulation Not Reportable 12/26/21 04:05 Toxic Vacuolation Not Reportable 12/26/21 04:05 Dohle Bodies Not Reportable 12/26/21 04:05 Pelger-Huet Anomaly Not Reportable 12/26/21 04:05 Raghav Rods Not Reportable 12/26/21 04:05 Platelet Estimate Consistent w auto 12/26/21 04:05 Clumped Platelets Not Reportable 12/26/21 04:05 Plt Clumps, EDTA Not Reportable 12/26/21 04:05 Large Platelets Not Reportable 12/26/21 04:05 Giant Platelets Not Reportable 12/26/21 04:05 Platelet Satelliting Not Reportable 12/26/21 04:05 Plt Morphology Comment Not Reportable 12/26/21 04:05 RBC Morphology Normal 12/26/21 04:05 Dimorphic RBCs Not Reportable 12/26/21 04:05 Polychromasia Not Reportable 12/26/21 04:05 Hypochromasia Not Reportable 12/26/21 04:05 Poikilocytosis Not Reportable 12/26/21 04:05 Anisocytosis Not Reportable 12/26/21 04:05 Microcytosis Not Reportable 12/26/21 04:05 Macrocytosis Not Reportable 12/26/21 04:05 Spherocytes Not Reportable 12/26/21 04:05 Pappenheimer Bodies Not Reportable 12/26/21 04:05 Sickle Cells Not Reportable 12/26/21 04:05 Target Cells Not Reportable 12/26/21 04:05 Tear Drop Cells Not Reportable 12/26/21 04:05 Ovalocytes Not Reportable 12/26/21 04:05 Helmet Cells Not Reportable 12/26/21 04:05 Navarro-Tal[place] Bodies Not Reportable 12/26/21 04:05 [place] Rings Not Reportable 12/26/21 04:05 [place] Cells Not Reportable 12/26/21 04:05 Bite Cells Not Reportable 12/26/21 04:05 Crenated Cell Not Reportable 12/26/21 04:05 Elliptocytes Not Reportable 12/26/21 04:05 Acanthocytes (Spur) Not Reportable 12/26/21 04:05 Rouleaux Not Reportable 12/26/21 04:05 Hemoglobin C Crystals Not Reportable 12/26/21 04:05 Schistocytes Not Reportable 12/26/21 04:05 Malaria parasites Not Reportable 12/26/21 04:05 Chaim Bodies Not Reportable 12/26/21 04:05 Hem Pathologist Commnt No 12/26/21 04:05 D-Dimer 566.48 ng/mlDDU (0-234) H 12/25/21 22:58 VBG pH 7.040 (7.320-7.420) L* 12/25/21 12:38 Sodium 138 mmol/L (137-145) 12/27/21 04:46 Potassium 3.1 mmol/L (3.6-5.0) L 12/27/21 04:46 Chloride 107.4 mmol/L (98-107) H 12/27/21 04:46 Carbon Dioxide 21 mmol/L (22-30) L 12/27/21 04:46 Anion Gap 13 mmol/L 12/27/21 04:46 BUN 4 mg/dL (9-20) L 12/27/21 04:46 Creatinine 0.5 mg/dL (0.8-1.3) L 12/27/21 04:46 Estimated GFR > 60 ml/min 12/27/21 04:46 BUN/Creatinine Ratio 8 % 12/27/21 04:46 Glucose 182 mg/dL (75-100) H 12/27/21 04:46 POC Glucose 149 mg/dL (70-105) H 12/26/21 13:09 Ketones Quantitative Moderate (Negative) 12/25/21 12:38 Lactic Acid 1.10 mmol/L (0.7-2.0) 12/26/21 04:26 Calcium 8.0 mg/dL (8.4-10.2) L 12/27/21 04:46 Phosphorus 1.60 mg/dL (2.5-4.5) L 12/27/21 04:46 Magnesium 1.90 mg/dL (1.7-2.3) 12/27/21 04:46 Total Bilirubin 0.20 mg/dL (0.1-1.2) 12/25/21 09:52 AST 19 units/L (5-40) 12/25/21 09:52 ALT 22 units/L (7-56) 12/25/21 09:52 Alkaline Phosphatase 111 units/L (35-129) 12/25/21 09:52 Lactate Dehydrogenase 224 units/L (91-180) H 12/25/21 12:40 Troponin T < 0.010 ng/mL (0.00-0.029) 12/25/21 09:52 C-Reactive Protein 0.40 mg/dL (0.00-1.30) 12/25/21 12:40 Total Protein 6.6 g/dL (6.3-8.2) 12/25/21 09:52 Albumin 4.0 g/dL (3.9-5) 12/25/21 09:52 Albumin/Globulin Ratio 1.5 % 12/25/21 09:52 Procalcitonin 0.32 ng/mL (<0.15) 12/25/21 22:58 Urine Color Straw (Yellow) 12/25/21 10:59 Urine Turbidity Clear (Clear) 12/25/21 10:59 Urine pH 5.0 (5.0-7.0) 12/25/21 10:59 Ur Specific [place] 1.020 (1.003-1.030) 12/25/21 10:59 Urine Protein 100 mg/dl mg/dL (Negative) 12/25/21 10:59 Urine Glucose (UA) 2000 mg/dL (Negative) 12/25/21 10:59 Urine Ketones 160 mg/dL (Negative) 12/25/21 10:59 Urine Blood Trace (Negative) 12/25/21 10:59 Urine Nitrite Negative (Negative) 12/25/21 10:59 Ur Reducing Substances Not Reportable 12/25/21 10:59 Urine Bilirubin Negative (Negative) 12/25/21 10:59 Urine Ictotest Not Reportable 12/25/21 10:59 Urine Urobilinogen < 2.0 mg/dL (<2.0) 12/25/21 10:59 Ur Leukocyte Esterase Negative (Negative) 12/25/21 10:59 Urine WBC (Auto) 3.0 /HPF (0.0-6.0) 12/25/21 10:59 Urine RBC (Auto) 1.0 /HPF (0.0-6.0) 12/25/21 10:59 U Epithel Cells (Auto) < 1.0 /HPF (0-13.0) 12/25/21 10:59 Urine Mucus Few /HPF 12/25/21 10:59 Coronavirus (PCR) Negative (Negative) 12/25/21 18:15 Blood Type O NEGATIVE 12/25/21 22:58 Antibody Screen Negative 12/25/21 22:58 Microbiology: Microbiology 12/25/21 Unknown Urine,Clean Catch Urine Culture - Preliminary NO GROWTH AFTER 24 HOURS 12/25/21 12:38 Peripheral/Venous Blood Culture - Preliminary NO GROWTH AFTER 24 HOURS 12/25/21 12:38 Peripheral/Venous Blood Culture - Preliminary NO GROWTH AFTER 24 HOURS Mitchell/IV: Voiding Method Urinal Active Medications - Current Medications Current Medications: Generic Name Dose Route Start Last Admin Trade Name Freq PRN Reason Stop Dose Admin Acetaminophen 650 mg 12/25/21 12:32 Acetaminophen 325 Mg Tab PO Q6H PRN Pain MILD(1-3)/Fever >100.5/BARRETT Albuterol 2.5 mg 12/25/21 12:32 Albuterol 2.5 Mg/3 Ml Nebu IH Q3HRT PRN Shortness Of Breath Dextrose 50 ml 12/26/21 12:32 Dextrose 50% In Water (25gm) 50 Ml Syringe IV Q30MIN PRN Hypoglycemia Protocol Insulin Human Lispro 0 unit 12/26/21 16:30 12/26/21 22:15 Insulin Lispro 100 Unit/Ml SUB-Q 3 unit ACHS ANIA Administration Protocol Ondansetron HCl 4 mg 12/26/21 19:29 Ondansetron 4 Mg/2 Ml Inj IV Q8H PRN Nausea And Vomiting Oxycodone/Acetaminophen 1 tab 12/25/21 12:32 Oxycodone /Acetaminophen 5-325mg Tab PO Q6H PRN Pain, Moderate (4-6) Pantoprazole Sodium 40 mg 12/26/21 08:00 12/26/21 09:04 Pantoprazole 40 Mg Tab PO 40 mg QDAC ANIA Administration Sodium Chloride 10 ml 12/25/21 22:00 12/26/21 21:45 Sodium Chloride 0.9% 10 Ml Flush Syringe IV 10 ml BID ANIA Administration Sodium Chloride 10 ml 12/25/21 12:32 Sodium Chloride 0.9% 10 Ml Flush Syringe IV PRN PRN LINE FLUSH Nutrition/Malnutrition Assess - Dietary Evaluation Nutrition/Malnutrition Findings: Nutrition Notes Start: 12/25/21 13:59 Freq: Status: Active Protocol: Document 12/25/21 13:59 NORBERTO (Rec: 12/25/21 14:06 NORBERTO [id number]) Nutrition Notes Need for Assessment generated from: MD Order,Education Initial or Follow up Brief Note Current Diagnosis Diabetes Other Pertinent Diagnosis DKA, N/V/Malaise. Current Diet NPO 9since 12/25 12:33). Height 5 ft 10 in Weight 81.647 kg [place] Body Weight (kg) 75.45 BMI 25.8 Weight change and time frame None provided at admission. Weight Status Overweight Subjective/Other Information RD consult for nutrition education assessment. Pt currently on NPO. Pt is on Room Air, O2 saturation @ 100%, according to Vital Signs notes. Pt still in critical condition , not a candidate for Nutrition Education at the time, will assess feasibility on F/U. Percent of energy/protein needs met: Pt currently on NPO. Nutrition Intervention Follow-Up By: 12/27/21 Additional Comments Nutrition education will be provided at F/U, if feasible. Continue monitoring food tolerance, %PO intake of meals , and BM.
[2021-12-26] MEDS ORDERED: AZITHROMYCIN/NS 500 MG/250 ML 500 MG/250 ML BAG IV SCH (13:00)
[2021-12-26] MEDS ORDERED: INSULIN GLARGINE 100 UNITS/ML SUB-Q SCH (13:30)
[2021-12-26] MEDS ORDERED: cefTRIAXone/NS 2 GM/100 ML 2 GM/100 ML BAG IV SCH (15:00)
[2021-12-26] MEDS: INSULIN LISPRO 100 UNIT/ML SUB-Q SCH ×2 (15:33→22:15)
[2021-12-26 16:28] LABS: Blood Urea Nitrogen 6 mg/dL (9-20); Calcium 7.8 mg/dL (8.4-10.2); Hemolysis Index 22
[2021-12-26 16:30] LABS: BUN/Creatinine Ratio 10
--- NOTE | 2021-12-26 16:52 | Progress Note ---
Subjective Date of service: 12/26/21 Objective Vital Signs - 12hr 12/26/21 12/26/21 12/26/21 05:00 06:00 07:01 Temperature Pulse Rate 81 77 81 Respiratory 18 18 12 Rate Blood Pressure 101/56 85/42 111/61 O2 Sat by Pulse 98 98 97 Oximetry 12/26/21 12/26/21 12/26/21 07:37 08:00 09:00 Temperature 97.7 F Pulse Rate 77 83 69 Respiratory 20 22 12 Rate Blood Pressure 111/61 114/58 91/47 O2 Sat by Pulse 99 99 98 Oximetry 12/26/21 12/26/21 12/26/21 10:00 11:00 12:00 Temperature 97.7 F Pulse Rate 113 H 72 Respiratory 18 16 20 Rate Blood Pressure 106/52 96/42 O2 Sat by Pulse 97 96 99 Oximetry 12/26/21 12/26/21 12/26/21 12:01 13:00 14:00 Temperature Pulse Rate 71 70 69 Respiratory 15 20 18 Rate Blood Pressure 105/60 111/56 111/56 O2 Sat by Pulse 98 97 99 Oximetry 12/26/21 15:00 Temperature Pulse Rate 67 Respiratory 10 L Rate Blood Pressure 110/67 O2 Sat by Pulse 98 Oximetry CBC and BMP: 12/26/21 04:05 12/26/21 15:24 ABG, PT/INR, D-dimer: PT/INR, D-dimer D-Dimer 566.48 ng/mlDDU (0-234) H 12/25/21 22:58 Abnormal lab findings: Abnormal Labs 12/25/21 12/25/21 12/25/21 09:52 09:52 09:52 WBC 36.9 H MCV 95 H MCHC 31 L Seg Neuts % (Manual) 87.0 H Lymphocytes % (Manual) 3.0 L Seg Neutrophils # Man 32.1 H Lymphocytes # (Manual) 1.1 L Monocytes # (Manual) 2.2 H D-Dimer 397.42 H VBG pH Sodium 130 L Potassium 5.3 H Chloride 92.3 L Carbon Dioxide 4 L* BUN Creatinine Glucose 584 H* POC Glucose Calcium Phosphorus Lactate Dehydrogenase 12/25/21 12/25/21 12/25/21 12:27 12:38 12:38 WBC MCV MCHC Seg Neuts % (Manual) Lymphocytes % (Manual) Seg Neutrophils # Man Lymphocytes # (Manual) Monocytes # (Manual) D-Dimer VBG pH 7.040 L* Sodium 130 L Potassium 5.4 H Chloride 92.6 L Carbon Dioxide 3 L* BUN Creatinine Glucose 581 H* POC Glucose 586 H Calcium Phosphorus 5.80 H Lactate Dehydrogenase 12/25/21 12/25/21 12/25/21 12:40 17:39 18:55 WBC MCV MCHC Seg Neuts % (Manual) Lymphocytes % (Manual) Seg Neutrophils # Man Lymphocytes # (Manual) Monocytes # (Manual) D-Dimer VBG pH Sodium Potassium Chloride Carbon Dioxide BUN Creatinine Glucose POC Glucose 227 H 188 H Calcium Phosphorus Lactate Dehydrogenase 224 H 12/25/21 12/25/21 12/25/21 20:05 21:23 22:03 WBC MCV MCHC Seg Neuts % (Manual) Lymphocytes % (Manual) Seg Neutrophils # Man Lymphocytes # (Manual) Monocytes # (Manual) D-Dimer VBG pH Sodium Potassium Chloride Carbon Dioxide BUN Creatinine Glucose POC Glucose 124 H 170 H 192 H Calcium Phosphorus Lactate Dehydrogenase 12/25/21 12/25/21 12/25/21 22:58 22:58 23:10 WBC MCV MCHC Seg Neuts % (Manual) Lymphocytes % (Manual) Seg Neutrophils # Man Lymphocytes # (Manual) Monocytes # (Manual) D-Dimer 566.48 H VBG pH Sodium Potassium Chloride 110.0 H Carbon Dioxide 10 L D BUN Creatinine Glucose 212 H POC Glucose 198 H Calcium 7.9 L Phosphorus 1.90 L D Lactate Dehydrogenase 12/26/21 12/26/21 12/26/21 00:01 01:02 02:02 WBC MCV MCHC Seg Neuts % (Manual) Lymphocytes % (Manual) Seg Neutrophils # Man Lymphocytes # (Manual) Monocytes # (Manual) D-Dimer VBG pH Sodium Potassium Chloride Carbon Dioxide BUN Creatinine Glucose POC Glucose 184 H 144 H 140 H Calcium Phosphorus Lactate Dehydrogenase 12/26/21 12/26/21 12/26/21 03:01 04:00 04:02 WBC MCV MCHC Seg Neuts % (Manual) Lymphocytes % (Manual) Seg Neutrophils # Man Lymphocytes # (Manual) Monocytes # (Manual) D-Dimer VBG pH Sodium Potassium Chloride 110.7 H Carbon Dioxide 15 L BUN Creatinine Glucose 139 H POC Glucose 132 H 123 H Calcium 7.9 L Phosphorus 1.70 L Lactate Dehydrogenase 07/12/1212/26/21 12/26/21 04:05 04:59 06:01 WBC 31.4 H MCV MCHC Seg Neuts % (Manual) 83.0 H Lymphocytes % (Manual) 9.0 L Seg Neutrophils # Man 26.1 H Lymphocytes # (Manual) Monocytes # (Manual) 0.9 H D-Dimer VBG pH Sodium Potassium Chloride Carbon Dioxide BUN Creatinine Glucose POC Glucose 145 H 128 H Calcium Phosphorus Lactate Dehydrogenase 12/26/21 12/26/21 12/26/21 08:08 09:12 11:34 WBC MCV MCHC Seg Neuts % (Manual) Lymphocytes % (Manual) Seg Neutrophils # Man Lymphocytes # (Manual) Monocytes # (Manual) D-Dimer VBG pH Sodium Potassium Chloride Carbon Dioxide BUN Creatinine Glucose POC Glucose 111 H 125 H 134 H Calcium Phosphorus Lactate Dehydrogenase 12/26/21 12/26/21 13:09 15:24 WBC MCV MCHC Seg Neuts % (Manual) Lymphocytes % (Manual) Seg Neutrophils # Man Lymphocytes # (Manual) Monocytes # (Manual) D-Dimer VBG pH Sodium Potassium 3.0 L Chloride 107.6 H Carbon Dioxide 19 L BUN 6 L Creatinine 0.6 L Glucose 136 H POC Glucose 149 H Calcium 7.8 L Phosphorus Lactate Dehydrogenase
[2021-12-26] MEDS ORDERED: POTASSIUM CHLORIDE ER 20 MEQ TAB PO ONE (17:21)
--- NOTE | 2021-12-26 17:45 | Electrocardiograph Report ---
[facility] Test Date: 2021-12-25 Test Time: 09:28:07 Pat Name: BELLA HERNANDEZ Department: Room: A252 Gender: M Registered Nurse Float Pool: arturo : 1995 Requested By: ED DOC Order Number: [id number] Reading MD: Felicitas Diggs Measurements Intervals [place] Rate: 108 P: 68 TN: 154 QRS: 68 QRSD: 103 T: 51 QT: 343 QTc: 460 Interpretive Statements Sinus tachycardia No previous ECG available for comparison Electronically Signed On 12-26-2021 17:45:26 EDT by Felicitas Diggs
[2021-12-26] MEDS ORDERED: ONDANSETRON 4 MG/2 ML INJ IV PRN (19:29)
[2021-12-27 05:33] VITALS: BP 124/72
[2021-12-27 05:45] LABS: Hematocrit 35.1 % (35.5-45.6); Hemoglobin 11.7 gm/dl (11.8-15.2); Mean Corpuscular HGB Conc 33 % (32-34); Mean Corpuscular Volume 89 fl (84-94); Platelet Count 202 K/mm3 (140-440); Red Blood Count 3.93 M/mm3 (3.65-5.03); Red Cell Distribution Width 13.3 % (13.2-15.2)
[2021-12-27 06:08] LABS: Blood Urea Nitrogen 4 mg/dL (9-20); Hemolysis Index 4
[2021-12-27 06:19] LABS: BUN/Creatinine Ratio 8
[2021-12-27] MEDS: PANTOPRAZOLE 40 MG TAB PO SCH (09:23)
[2021-12-27] MEDS: INSULIN LISPRO 100 UNIT/ML SUB-Q SCH (09:25)
--- NOTE | 2021-12-27 09:56 | Discharge Summary ---
Providers - Providers Date of Admission: 12/25/21 12:32 Date of discharge: 12/27/21 Attending physician: DOUGLAS PARNELL 12/25/21 11:10 Consult to Dietitian/Nutrition [CONS] Routine Physician Instructions: Reason For Exam: DKA Reason for Consult: Nutrition Recommendations Reason for Consult: Diet education 12/25/21 12:38 Consult to Physician [CONS] Stat Comment: noted/ sophia Consulting Provider: RIGO JEROME Physician Instructions: Reason For Exam: dka Primary care physician: TUB OPERATOR Hospitalization Reason for admission: DKA Condition: Critical Hospital course: 26-year-old male with past medical history of diabetes mellitus presented through the emergency department with complaints of lethargy and altered mentation. Patient was admitted with diagnosis of DKA, sepsis, hyponatremia, metabolic acidosis, toxic metabolic encephalopathy, hypokalemia, hypophosphatemia. Hospital course by disease process below. #Diabetic ketoacidosis #Anion gap metabolic acidosis #History of type 1 diabetes -A1c 12.5% -Presented with anion gap 40, glucose in the 500s -Per patient he ran out of supply for his insulin over the weekend and he is not able to afford them at this time -DKA protocol initiated -Transition to subQ insulin, SSI ACHS and Lantus Qhs -Critical care consulted, assistance appreciated -Serial BMP,mg, and phosp ordered #Leukocytosis #Possible Sepsis -Elevated WBC count and heart rate -Likely secondary to above -CXR is unremakable, COVID PCR negative -Blood cultures with no growth to date -UA positive for ketones, otherwise negative -Patient remains afebrile and VSS -Procal wnr -Will hold IV Abx for now -Continue to F/U on B.cult -Daily CBC monitor #Toxic Metabolic Encephalopathy -Most likely secondary to DKA -DKA protocol initiated -Patient is awake and alert this am, totally appropriate -Avoid benzodiazepine at this time -Maintenance of sleep-wake cycle, avoid delirium #Hypophosphetemia #Hypokalemia -Likely secondary to above and gtt -K and mg repleted -Serial BMP ordered -will continue to monitor electrolytes and replete as needed #Hyponatremia-resolved #Volume Depletion -Likely secondary to hyperglycemia -High specific gravity, hemoconcentration on CBC -s/p IV fluids with DKA protocol -Strict intake and output -Monitor and replace electrolytes as needed Patient still has significant leukocytosis that was improved and blood cultures that were not quite completed. Patient was counseled on staying in the hospital until completion of cultures to rule out sepsis and maintenance of BG. However, nurse reports patient disagree with staying in the hospital and wanted to leave AMA. Risk of leaving AMA were voiced to the patient including . Dedicated discharge time 32 minutes Disposition: LEFT AGAINST MEDICAL ADVICE Final Discharge Diagnosis (Prints w/discharge instructions): DKA, sepsis, hyponatremia, metabolic acidosis, toxic metabolic encephalopathy, hypokalemia, hypophosphatemia. Core Measure Documentation - Palliative Care Palliative Care/ Comfort Measures: Not Applicable - Core Measures Any of the following diagnoses?: none Exam - Constitutional Vitals: Temp Pulse Resp BP Pulse Ox 99.0 F 51 L 16 124/72 99 12/27/21 05:31 12/27/21 05:31 12/27/21 05:31 12/27/21 05:12/27/21 05:31 General appearance: Present: no acute distress, well-nourished - EENT Eyes: Present: PERRL ENT: hearing intact, clear oral mucosa - Neck Neck: Present: supple, normal ROM - Respiratory Respiratory effort: normal Respiratory: bilateral: CTA - Cardiovascular Heart Sounds: Present: S1 & S2. Absent: rub, click - Extremities Extremities: pulses symmetrical, No edema Peripheral Pulses: within normal limits - Abdominal General gastrointestinal: Present: soft, non-tender, non-distended, normal bowel sounds Male genitourinary: Present: normal - Integumentary Integumentary: Present: clear, warm, dry - Musculoskeletal Musculoskeletal: gait normal, strength equal bilaterally - Psychiatric Psychiatric: appropriate mood/affect, intact judgment & insight - Neurologic Neurologic: CNII-XII intact, moves all extremities Plan Activity: advance as tolerated Weight Bearing Status: Weight Bear as Tolerated Diet: diabetic Follow up with: PRIMARY CARE, [Primary Care Provider] - 3-5 Days
--- NOTE | 2021-12-27 13:57 | Progress Note ---
Assessment and Plan - Patient Problems (1) DKA (diabetic ketoacidosis) Current Visit: Yes Status: Acute Qualifiers: Diabetes mellitus type: type 1 (2) Sepsis Current Visit: Yes Status: Acute (3) Suspected 2019 novel coronavirus infection Current Visit: Yes Status: Acute Subjective Date of service: 12/27/21 Objective Vital Signs - 12hr 12/27/21 12/27/21 05:31 10:00 Temperature 99.0 F Pulse Rate 51 L Pulse Rate [ 69 From Monitor] Respiratory 16 16 Rate Blood Pressure 124/72 O2 Sat by Pulse 99 99 Oximetry CBC and BMP: 12/27/21 04:46 12/27/21 04:46 ABG, PT/INR, D-dimer: PT/INR, D-dimer D-Dimer 566.48 ng/mlDDU (0-234) H 12/25/21 22:58 Abnormal lab findings: Abnormal Labs 12/25/21 12/25/21 12/25/21 09:52 09:52 09:52 WBC 36.9 H Hgb Hct MCV 95 H MCHC 31 L Seg Neuts % (Manual) 87.0 H Lymphocytes % (Manual) 3.0 L Seg Neutrophils # Man 32.1 H Lymphocytes # (Manual) 1.1 L Monocytes # (Manual) 2.2 H D-Dimer 397.42 H VBG pH Sodium 130 L Potassium 5.3 H Chloride 92.3 L Carbon Dioxide 4 L* BUN Creatinine Glucose 584 H* POC Glucose Calcium Phosphorus Lactate Dehydrogenase 12/25/21 12/25/21 12/25/21 12:27 12:38 12:38 WBC Hgb Hct MCV MCHC Seg Neuts % (Manual) Lymphocytes % (Manual) Seg Neutrophils # Man Lymphocytes # (Manual) Monocytes # (Manual) D-Dimer VBG pH 7.040 L* Sodium 130 L Potassium 5.4 H Chloride 92.6 L Carbon Dioxide 3 L* BUN Creatinine Glucose 581 H* POC Glucose 586 H Calcium Phosphorus 5.80 H Lactate Dehydrogenase 12/25/21 12/25/21 12/25/21 12:40 17:39 18:55 WBC Hgb Hct MCV MCHC Seg Neuts % (Manual) Lymphocytes % (Manual) Seg Neutrophils # Man Lymphocytes # (Manual) Monocytes # (Manual) D-Dimer VBG pH Sodium Potassium Chloride Carbon Dioxide BUN Creatinine Glucose POC Glucose 227 H 188 H Calcium Phosphorus Lactate Dehydrogenase 224 H 12/25/21 12/25/21 12/25/21 20:05 21:23 22:03 WBC Hgb Hct MCV MCHC Seg Neuts % (Manual) Lymphocytes % (Manual) Seg Neutrophils # Man Lymphocytes # (Manual) Monocytes # (Manual) D-Dimer VBG pH Sodium Potassium Chloride Carbon Dioxide BUN Creatinine Glucose POC Glucose 124 H 170 H 192 H Calcium Phosphorus Lactate Dehydrogenase 12/25/21 12/25/21 12/25/21 22:58 22:58 23:10 WBC Hgb Hct MCV MCHC Seg Neuts % (Manual) Lymphocytes % (Manual) Seg Neutrophils # Man Lymphocytes # (Manual) Monocytes # (Manual) D-Dimer 566.48 H VBG pH Sodium Potassium Chloride 110.0 H Carbon Dioxide 10 L D BUN Creatinine Glucose 212 H POC Glucose 198 H Calcium 7.9 L Phosphorus 1.90 L D Lactate Dehydrogenase 12/26/21 12/26/21 12/26/21 00:01 01:02 02:02 WBC Hgb Hct MCV MCHC Seg Neuts % (Manual) Lymphocytes % (Manual) Seg Neutrophils # Man Lymphocytes # (Manual) Monocytes # (Manual) D-Dimer VBG pH Sodium Potassium Chloride Carbon Dioxide BUN Creatinine Glucose POC Glucose 184 H 144 H 140 H Calcium Phosphorus Lactate Dehydrogenase 12/26/21 12/26/21 12/26/21 03:01 04:00 04:02 WBC Hgb Hct MCV MCHC Seg Neuts % (Manual) Lymphocytes % (Manual) Seg Neutrophils # Man Lymphocytes # (Manual) Monocytes # (Manual) D-Dimer VBG pH Sodium Potassium Chloride 110.7 H Carbon Dioxide 15 L BUN Creatinine Glucose 139 H POC Glucose 132 H 123 H Calcium 7.9 L Phosphorus 1.70 L Lactate Dehydrogenase 12/26/21 12/26/21 12/26/21 04:05 04:59 06:01 WBC 31.4 H Hgb Hct MCV MCHC Seg Neuts % (Manual) 83.0 H Lymphocytes % (Manual) 9.0 L Seg Neutrophils # Man 26.1 H Lymphocytes # (Manual) Monocytes # (Manual) 0.9 H D-Dimer VBG pH Sodium Potassium Chloride Carbon Dioxide BUN Creatinine Glucose POC Glucose 145 H 128 H Calcium Phosphorus Lactate Dehydrogenase 12/26/21 12/26/21 12/26/21 08:08 09:12 11:34 WBC Hgb Hct MCV MCHC Seg Neuts % (Manual) Lymphocytes % (Manual) Seg Neutrophils # Man Lymphocytes # (Manual) Monocytes # (Manual) D-Dimer VBG pH Sodium Potassium Chloride Carbon Dioxide BUN Creatinine Glucose POC Glucose 111 H 125 H 134 H Calcium Phosphorus Lactate Dehydrogenase 12/26/21 12/26/21 12/27/21 13:09 15:24 04:46 WBC 16.3 H Hgb 11.7 L Hct 35.1 L MCV MCHC Seg Neuts % (Manual) Lymphocytes % (Manual) Seg Neutrophils # Man Lymphocytes # (Manual) Monocytes # (Manual) D-Dimer VBG pH Sodium Potassium 3.0 L Chloride 107.6 H Carbon Dioxide 19 L BUN 6 L Creatinine 0.6 L Glucose 136 H POC Glucose 149 H Calcium 7.8 L Phosphorus Lactate Dehydrogenase 12/27/21 12/27/21 04:46 07:53 WBC Hgb Hct MCV MCHC Seg Neuts % (Manual) Lymphocytes % (Manual) Seg Neutrophils # Man Lymphocytes # (Manual) Monocytes # (Manual) D-Dimer VBG pH Sodium Potassium 3.1 L Chloride 107.4 H Carbon Dioxide 21 L BUN 4 L Creatinine 0.5 L Glucose 182 H POC Glucose 186 H Calcium 8.0 L Phosphorus 1.60 L Lactate Dehydrogenase Chest x-ray: report reviewed, image reviewed Additional Studies: HEST 2 VIEWS 12/25/21 INDICATION / CLINICAL INFORMATION: SOB. COMPARISON: None available. FINDINGS: SUPPORT DEVICES: None. HEART / MEDIASTINUM: No significant abnormality. LUNGS / PLEURA: No significant pulmonary or pleural abnormality. No pneumothorax. ADDITIONAL FINDINGS: No significant additional findings. IMPRESSION: 1. No acute findings. CTA CHEST WITH CONTRAST 12/25/21 INDICATION / CLINICAL INFORMATION: sob, cp, tachycardia, elevated d dimer, r/o PE. TECHNIQUE: Axial CT images were obtained through the chest after injection of 80 cc Omnipaque 350 IV contrast. 3 plane MIP and/or 3D reconstructions were produced. All CT scans at this location are performed using CT dose reduction for ALARA by means of automated exposure control. There is mild image degradation secondary to motion artifact. COMPARISON: None available. FINDINGS: PULMONARY ARTERIES: No pulmonary emboli. THORACIC AORTA: No significant abnormality. HEART: No significant abnormality. CORONARY ARTERY CALCIFICATION: None. MEDIASTINUM / DIANA: No significant abnormality. PLEURA: No pleural effusion. No pneumothorax. LUNGS: No acute air space or interstitial disease. ADDITIONAL FINDINGS: None. UPPER ABDOMEN: No acute findings. SKELETAL STRUCTURES: No significant osseous abnormality. IMPRESSION: 1. No CT evidence for pulmonary embolism. 2. No acute findings.
== END 2021-12-27 10:46 | disposition left against medical advice (07) | DRG 871 ==
LOC: ED 09:13 → CC1 12:32 → 3A 12-27 00:43
PROVIDERS: ADMIT Internal Medicine; ATTEND Hospitalist
PROC: 06HM33Z Insertion of Infusion Device into Right Femoral Vein, Percutaneous Approach (ICD-10-PCS; principal; 2021-12-25)
PROC: B54BZZA Ultrasonography of Right Lower Extremity Veins, Guidance (ICD-10-PCS; 2021-12-25)
DX: A41.9 Sepsis, unspecified organism (principal); G92.8 Other toxic encephalopathy; E11.10 Type 2 diabetes mellitus with ketoacidosis without coma; E87.2 Acidosis; E87.1 Hypo-osmolality and hyponatremia; Z20.822 Contact with and (suspected) exposure to COVID-19; Z83.3 Family history of diabetes mellitus; Z82.49 Family history of ischemic heart disease and other diseases of the circulatory system; Z88.8 Allergy status to other drugs, medicaments and biological substances; E87.6 Hypokalemia; E83.39 Other disorders of phosphorus metabolism
CPT/HCPCS: 36415; 71046; 71275; 80048; 80053; 81001; 82010; 82140; 82805; 82962; 83615; 83735; 84100; 84145; 84484; 85007; 85025; 85027; 85379; 86140; 86850; 86900; 86901; 87040; 87086; 93005; G0378; J7070; J7510; Q9967; J0456; J0696; J1815; J2270; J2405; J7030; J7040; U0003

== ENCOUNTER 2022-01-23 22:38 | Emergency (ER) | payer OTHER | END 2022-01-24 14:58 | disposition left against medical advice (07) | LOC: ED 22:38 | DX: E11.10 Type 2 diabetes mellitus with ketoacidosis without coma (principal); Z53.21 Procedure and treatment not carried out due to patient leaving prior to being seen by health care provider ==